=== PATIENT | male | born 1945 | race Caucasian/White ===

== ENCOUNTER → 2016-04-04 | Outpatient (CLI) | payer OTHER, MEDICARE ==
--- NOTE | 2016-04-04 08:54 | CT ---
CT Scan of the Chest Without Contrast at 0810 hours History: Right pulmonary nodule on CT abdomen December 2015. History of renal cell carcinoma status po st partial nephrectomy. Comparison: CT abdomen December 2015 Technique: Noncontrast multidetector helical CT imaging was performed from the superior thoracic inl et to the diaphragm. The radiologist manipulated images at the computer workstation. Dose reduction techniques were utilized. Findings: Previously identified right middle lobe nonspecific noncalcified pulmonary nodule appears s lightly larger measuring 9 x 4 mm previously measuring 8 x 4 mm, image 163 of series 4. However there are 7 additional noncalcified nonspecific pulmonary nodules noted in both lungs which were not image d on previous study. Left lower lobe 3 mm nonspecific noncalcified pulmonary nodule image 163 of series 4. Left lower lobe 3 mm nonspecific noncalcified pulmonary nodule image 165 of series 4. Left lower lobe 5 mm nonspecif ic noncalcified pulmonary nodule image 157 of series 4. Left lower lobe superior segment 3 mm nonspec ific noncalcified pulmonary nodule image 92 of series 4. Right lower lobe 4 mm nonspecific noncalcified pulmonary nodule 118 of series 4. Right lower lobe 5 m m nonspecific noncalcified pulmonary nodule image 115 of series 4. Right upper lobe 3 mm pulmonary nodule image 51 of series 4 No evidence of pneumonia, pleural effusion or pneumothorax. A few benign-appearing mediastinal lymph nodes. Heart is normal in size. Three-vessel coronary artery calcifications. 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 Impression: 1. Multiple nonspecific noncalcified pulmonary nodules throughout both lungs measuring up to 9 mm in size with a differential diagnosis of metastases, noncalcified granulomata, or early bronchogenic car cinoma. Recommend either nuclear medicine PET scan imaging or follow up CT of the chest in 3 months w ith continued monitoring up to 2 years to ensure stability of the nonspecific pulmonary nodules. 2. No significant adenopathy. 3. Atherosclerotic thoracic aorta without aneurysm. 4. Coronary artery calcifications. A Follow-Up Required message has been communicated to Raymon Hussein MD via the [employer] system on 04/04/2016 8:50, Message ID [id number].
== END ==
LOC: FIMAGING 07:49
PROVIDERS: ATTEND Specialist
DX: R91.1 Solitary pulmonary nodule (principal); I70.0 Atherosclerosis of aorta; I25.10 Atherosclerotic heart disease of native coronary artery without angina pectoris; Z85.528 Personal history of other malignant neoplasm of kidney

== ENCOUNTER → 2016-12-22 | Outpatient (CLI) | payer OTHER, MEDICARE | LOC: FIMAGING 07:47 | PROVIDERS: ATTEND Specialist | DX: R91.1 Solitary pulmonary nodule (principal); Z85.528 Personal history of other malignant neoplasm of kidney ==

== ENCOUNTER → 2017-01-27 | Outpatient (CLI) | payer OTHER, MEDICARE | LOC: FIMAGING 14:11 | PROVIDERS: ATTEND Specialist | DX: R91.8 Other nonspecific abnormal finding of lung field (principal); Z85.528 Personal history of other malignant neoplasm of kidney ==

== ENCOUNTER → 2017-07-11 | Outpatient (CLI) | payer OTHER, MEDICARE | LOC: FIMAGING 07:45 | PROVIDERS: ATTEND Specialist | DX: R91.1 Solitary pulmonary nodule (principal); I70.0 Atherosclerosis of aorta; C64.1 Malignant neoplasm of right kidney, except renal pelvis; N18.9 Chronic kidney disease, unspecified ==

== ENCOUNTER → 2018-01-10 | Outpatient (CLI) | payer OTHER, MEDICARE | LOC: FIMAGING 07:53 | PROVIDERS: ATTEND Specialist | DX: R91.8 Other nonspecific abnormal finding of lung field (principal); J98.11 Atelectasis; N13.2 Hydronephrosis with renal and ureteral calculous obstruction; N18.9 Chronic kidney disease, unspecified; N32.9 Bladder disorder, unspecified; M47.25 Other spondylosis with radiculopathy, thoracolumbar region; Z85.528 Personal history of other malignant neoplasm of kidney ==

== ENCOUNTER → 2018-08-21 | Outpatient (CLI) | payer OTHER, MEDICARE | LOC: FIMAGING 08:20 ==